=== PATIENT | male | born 1990 | race Caucasian/White ===

== ENCOUNTER 2024-01-03 13:02 | Emergency (ER) | payer OTHER ==
[2024-01-03 14:11] LABS: #Basophils 0.03 10x3/uL (0.0-0.2); #Eosinphils 0.36 10x3/uL (0.0-0.5); #Monocytes 0.41 10x3/uL (0.0-1.1); #Neutrophils 3.63 10x3/uL (1.5-8.4); %Basophils 0.5 % (0.0-2.0); %Eosinophils 6.1 % (0.0-6.0); %Lymphocytes 25.3 % (18.0-47.0); %Monocytes 6.9 % (0.0-10.0); Hematocrit 40.4 % (38.8-50.0); Mean Corpuscular HGB CONC 32.2 g/dL (32.0-36.0); Mean Corpuscular Hemoglobin 29.2 pg (27.0-33.0); Mean Corpuscular Volume 90.8 fL (81.2-95.1); Mean Platelet Volume 9.2 fL (7.4-10.4); Platelet Count 252 10x3/uL (150-450); RBC Distribution Width 15.2 % (11.5-14.5); Red Blood Cell (RBC) Count 4.45 10x6/uL (4.32-5.72); White Blood Cell (WBC) Count 5.9 10x3/uL (3.5-10.5)
[2024-01-03] MEDS ORDERED: Furosemide 40 MG (4 mL) VIAL ONE (14:16)
[2024-01-03 14:17] LABS: ALT (SGPT) 28 U/L (8-55); AST (SGOT) 25 U/L (5-34); Albumin 3.2 g/dL (3.5-5.0); Alkaline Phosphatase 71 U/L (40-110); Anion Gap 12 mmol/L (10-20); BUN (Urea Nitrogen) 12 mg/dL (8.9-20.6); Bilirubin, Total 0.7 mg/dL (0.2-1.2); Calc. Creatinine Clearance 0 mL/min (70-130); Calcium 9.1 mg/dL (7.8-10.44); Carbon Dioxide 27 mmol/L (22-29); Chloride 105 mmol/L (98-107); Estimated GFR 106; Globulin 3.5 g/dL (2.4-3.5); Glucose 99 mg/dL (70-105); Potassium 4.2 mmol/L (3.5-5.1); Protein, Total 6.7 g/dL (6.0-8.3); Sodium 140 mmol/L (136-145)
[2024-01-03 14:22] LABS: Troponin I Less than 0.010 ng/mL (< 0.028)
== END 2024-01-03 14:43 | disposition home or self-care (01) ==
LOC: CSHERS 13:02
DX: I87.8 Other specified disorders of veins (principal); L03.116 Cellulitis of left lower limb; L03.115 Cellulitis of right lower limb; F17.210 Nicotine dependence, cigarettes, uncomplicated
CPT/HCPCS: 36415; 80053; 83880; 84443; 84484; 85025; 96372; 99283; J1940